=== PATIENT | female | born 1965 | race Hispanic/Latino ===

== ENCOUNTER 2019-11-10 23:11 | Inpatient (IN) | payer BC, SELFPAY ==
[2019-11-10] MEDS ORDERED: MAGNE/ALUM HYDROXD 30 ML UCUP ONE (23:35)
[2019-11-10] MEDS ORDERED: ONDANSETRON 4 MG/2 ML VIAL ONE (23:36)
[2019-11-10] MEDS ORDERED: MORPHINE 4 MG/ML SYR ONE (23:36)
[2019-11-10] MEDS ORDERED: LIDOCAINE VISCOUS 2% SOLN 15 ML UDC ONE (23:36)
[2019-11-10 23:37] LABS: Basophils % 0.7 % (0-1.3)
[2019-11-10 23:44] LABS: Absolute Lymphocytes (CBC) 1.8 K/uL (0.7-4.9); Hematocrit 42.7 % (36.0-45.0); Lymphocytes % 16.6 % (15.3-44.8); MPV 11.4 fL (7.6-11.3); RBC Red Blood Cell Count 4.96 M/uL (3.86-4.86)
[2019-11-10] MEDS ORDERED: MEPERIDINE HCL 25 MG/0.5 ML ONE (23:55)
[2019-11-10] MEDS ORDERED: MEPERIDINE HCL 50 MG/ML ONE (23:57)
--- NOTE | 2019-11-10 23:59 | RAD REPORT ---
EXAM DESCRIPTION: [place] Single View11/10/2019 11:43 pm CLINICAL HISTORY: Chest pain COMPARISON: none FINDINGS: The lungs appear clear of acute infiltrate. The heart is normal size IMPRESSION: No acute abnormalities displayed
[2019-11-11 00:02] LABS: ALT/SGPT 33 U/L (12-78); AST/SGOT 22 U/L (15-37); Albumin 3.8 g/dL (3.4-5.0); Alkaline Phosphatase 107 U/L (45-117); BUN Blood Urea Nitrogen 13 mg/dL (7-18); Bicarbonate 23 mmol/L (21-32); Bilirubin Direct 0.2 mg/dL (0-0.2); Bilirubin Total 0.6 mg/dL (0.2-1.0); Glucose Level 175 mg/dL (74-106); Lipase 66 U/L (73-393); Potassium 3.9 mmol/L (3.5-5.1); Protein, Total 8.6 g/dL (6.4-8.2); Sodium Level 140 mmol/L (136-145); Troponin (Emerg Dept Use Only) < 0.02 ng/mL (0.0-0.045)
[2019-11-11] MEDS ORDERED: MORPHINE 4 MG/ML SYR ONE (00:31)
[2019-11-11] MEDS ORDERED: HYDROMORPHONE HCL 0.5 MG/0.5 ML INJ ONE (00:50)
--- NOTE | 2019-11-11 01:02 | ER ---
Nurse's Notes [facility] Name: Alesia Hernandez Age: 53 yrs Sex: Female : 1965 Arrival Date: 11/10/2019 Time: 23:16 Bed 4 Private MD: Diagnosis: Acute cholecystitis Presentation: 11/09 23:19 Chief complaint: Patient states: Chest pain started 2-3 hours ago, reports cough with ca1 chest pain, denies SOB. Pain more on the R side, radiates to the back. Coronavirus screen: Patient denies fever greater than 100.4F, cough, shortness of breath, or difficulty breathing. Proceed with normal triage process. Ebola Screen: Patient negative for fever greater than or equal to 101.5 degrees Fahrenheit, and additional compatible Ebola Virus Disease symptoms Patient denies exposure to infectious person. Patient denies travel to an Ebola-affected area in the 21 days before illness onset. No symptoms or risks identified at this time. Initial Sepsis Screen: Does the patient meet any 2 criteria? No. Patient's initial sepsis screen is negative. Does the patient have a suspected source of infection? No. Patient's initial sepsis screen is negative. Risk Assessment: Do you want to hurt yourself or someone else? Patient reports no desire to harm self or others. Onset of symptoms was November 10, 2019. 23:19 Method Of Arrival: Wheelchair ca1 23:19 Acuity: LUCIO 3 ca1 Historical: - Allergies: 23:22 No Known Allergies; ca1 - Home Meds: 23:22 None [Active]; ca1 - PMHx: 23:22 Cholelithiasis; ca1 - PSHx: 23:22 None; ca1 - Immunization history:: Adult Immunizations not up to date, Flu vaccine is not up to date. - Social history:: Smoking status: Patient reports the use of cigarette tobacco products, 3-4 cigs a day. - Family history:: not pertinent. - Hospitalizations: : No recent hospitalization is reported. Screenin:44 Abuse screen: Denies threats or abuse. Nutritional screening: No deficits noted. ea Tuberculosis screening: No symptoms or risk factors identified. Fall Risk IV access (20 points). Assessment: 23:46 General: Appears in no apparent distress. Behavior is cooperative, appropriate for age, ea restless. Pain: Complains of pain in epigastric area Pain radiates to posterior aspect of right lateral abdomen and anterior aspect of right lateral abdomen. Pain: Pain began 3 hours ago. Neuro: Level of Consciousness is awake, alert, obeys commands, Oriented to person, place, time, situation. Cardiovascular: Patient's skin is warm and dry. Respiratory: Airway is patent Respiratory effort is even, unlabored, Respiratory pattern is regular, symmetrical. Derm: Skin is pink, warm \T\ dry. 11/10 00:15 Reassessment: Patient and/or family updated on plan of care and expected duration. Pain ah level reassessed. Pt states that she feels like she is resting better at this time and pain is better controlled. 00:48 Reassessment: Patient and/or family updated on plan of care and expected duration. Pain ah level reassessed. Patient is alert, oriented x 3, equal unlabored respirations, skin warm/dry/pink. Pt continues to have pain at this time. Pain addressed and dilaudid ordered and administered per orders. 01:32 Reassessment: attempted to call report to 2nd floor at this time. 01:39 Reassessment: Report called to RAINE Lyman on 2nd floor. 02:03 Reassessment: Patient and/or family updated on plan of care and expected duration. Pain ea level reassessed. Alert and oriented x 3. Pt reports pain has decreased. Respirations even and unlabored. Chest expansions even symmetrical. Pt admitted to second floor, left ED via stretcher per tech. Pt tolerating well. Vital Signs: 11/09 23:19 BP 147 / 67; Pulse 67; Resp 20; Temp 97.6(TE); Pulse Ox 100% on R/A; Weight 136.08 kg ca1 (R); Height 5 ft. 4 in. (162.56 cm) (R); Pain 10/10; 11/10 00:00 BP 129 / 60; Pulse 66; Resp 15; Pulse Ox 99% ; ah 00:31 BP 127 / 76; Pulse 67; Resp 15; Pulse Ox 99% ; ah 01:59 BP 138 / 75; Pulse 64; Resp 16; Temp 98.0; Pulse Ox 98% ; ah 11/09 23:19 Body Mass Index 51.49 (136.08 kg, 162.56 cm) ca1 ED Course: 11/09 23:16 Patient arrived in ED. cf2 23:20 Samir Frias MD is Attending Physician. rn 23:21 Triage completed. ca1 23:22 Arm band placed on right wrist. ca1 23:30 Inserted saline lock: 20 gauge in left antecubital area, using aseptic technique. Blood ea collected. Patient maintains SpO2 saturation greater than 95% on room air. 23:34 Carissa Issa, RN is Primary Nurse. ah 23:43 XRAY Chest (1 view) In Process Unspecified. EDMS 23:45 Patient has correct armband on for positive identification. Bed in low position. Call ea light in reach. monitor worker on. Pulse ox on. NIBP on. 11/10 00:[address] via wheelchair. ah 00:26 Patient moved back from CT. 00:42 CT Abd/Pelvis - IV Contrast Only In Process Unspecified. EDMS 01:01 David Holliday MD is Hospitalizing Provider. rn 01:58 No provider procedures requiring assistance completed. Patient admitted, IV remains in place. intact. Administered Medications: 11/09 23:35 Drug: Zofran (Ondansetron) 4 mg Route: IVP; Site: left antecubital; 11/10 00:29 Follow up: Response: No adverse reaction 11/09 23:37 Drug: morphine 4 mg {Note: RASS 1.} Route: IVP; Site: left antecubital; 11/10 00:29 Follow up: Response: No adverse reaction; RASS: Restless (+1) 11/09 23:42 Drug: GI Cocktail without - (Maalox Suspension 30 ml, Lidocaine Liquid 2 % 15 ea ml) Route: PO; 11/10 00:30 Follow up: Response: No adverse reaction 11/09 23:55 Drug: Demerol 25 mg Route: IVP; Site: left antecubital; 11/10 00:50 Follow up: Response: No adverse reaction; Pain is unchanged, physician notified; RASS: ea Restless (+1) 00:27 Drug: morphine 4 mg {Note: RASS 1.} Route: IVP; Site: left antecubital; 00:50 Follow up: Response: No adverse reaction; Pain is unchanged, physician notified; RASS: ea Restless (+1) 00:49 Drug: Dilaudid 0.5 mg {Note: RASS 1.} Route: IVP; Site: left antecubital; 01:42 Follow up: Response: No adverse reaction; Pain is decreased; RASS: Drowsy (-1) 01:05 Drug: Rocephin 1 grams Route: IV; Rate: calculated rate; Site: left antecubital; 01:42 Follow up: Response: No adverse reaction; IV Status: Completed infusion 01:10 Drug: Flagyl 500 mg Volume: 100 ml; Route: IVPB; Rate: 200 ml/hr; Infused Over: 30 ah mins; Site: left antecubital; 02:03 Follow up: Response: No adverse reaction; IV Status: Infusion continued upon transfer ea 01:47 Drug: Phenergan 12.5 mg Route: IVP; Site: left antecubital; 01:59 Follow up: Response: No adverse reaction; Nausea is decreased Outcome: 01:01 Decision to Hospitalize by Provider. rn 01:57 Admitted to Med/surg accompanied by tech, via stretcher, room 211, with chart, Report called to RAINE Lyman 01:57 Condition: stable 01:57 Instructed on the need for admit, Demonstrated understanding of 02:05 Patient left the ED. ea Signatures: Dispatcher [employer] EDMS Samir Frias MD MD rn Antunez, Elena RN Cherie Ham ea, RN RN ca1 Frazier, Celesta formerly [facility] Carissa Issa RN RN Corrections: (The following items were deleted from the chart) 00:28 00:27 morphine 4 mg IVP in left antecubital [facility] 00:49 00:49 Dilaudid 0.5 mg IVP in left antecubital [facility]
--- NOTE | 2019-11-11 01:02 | EDPHYS ---
Physician Documentation [facility] Name: Alesia Hernandez Age: 53 yrs Sex: Female : 1965 Arrival Date: 11/10/2019 Time: 23:16 Bed 4 Private MD: ED Physician Samir Frias HPI: 11/09 23:41 This 53 yrs old Female presents to ER via Wheelchair with complaints of chest rn pain, abd pain. 23:41 The patient or guardian reports chest pain that is located primarily in the epigastric rn area. Onset: 3 hour(s) ago. The pain radiates to The chest pain is described as sharp. Duration: The patient or guardian reports a single episode. Modifying factors: The symptoms are alleviated by nothing. the symptoms are aggravated by palpation of area. Severity of pain: At its worst the pain was moderate. The patient has experienced similar episodes in the past. Reports 3 hours of lower chest pain/abd pain/back pain, reports has had similar pain in past and was attributed to gallstones, but tonight worse, no fever/vomiting/diarrhea. No cough or sob. When asked to specify where it hurts, she points to sub-xiphoid region. Ate pizza for dinner. . Historical: - Allergies: 23:22 No Known Allergies; ca1 - Home Meds: 23:22 None [Active]; ca1 - PMHx: 23:22 Cholelithiasis; ca1 - PSHx: 23:22 None; ca1 - Immunization history:: Adult Immunizations not up to date, Flu vaccine is not up to date. - Social history:: Smoking status: Patient reports the use of cigarette tobacco products, 3-4 cigs a day. - Family history:: not pertinent. - Hospitalizations: : No recent hospitalization is reported. ROS: 23:41 Constitutional: Negative for fever, chills, and weight loss, Eyes: Negative for injury, rn pain, redness, and discharge, Neck: Negative for injury, pain, and swelling, Cardiovascular: Negative for palpitations, and edema, Respiratory: Negative for shortness of breath, cough, wheezing, and pleuritic chest pain, Abdomen/GI: Negative for vomiting, diarrhea, and constipation, Back: Negative for injury MS/Extremity: Negative for injury and deformity, Skin: Negative for injury, rash, and discoloration, Neuro: Negative for headache, weakness, numbness, tingling, and seizure. Exam: 23:41 Constitutional: This is a well developed, well nourished patient who is awake, alert, rn sitting upright and appears uncomfortable Head/Face: Normocephalic, atraumatic. ENT: MMM Cardiovascular: Regular rate and rhythm. No pulse deficits. Respiratory: Mild tachypnea. Clear bilateral breath sounds. No retractions or nasal flaring. Abdomen/GI: soft, + tenderness epigastric region, neg coe, no rebound MS/ Extremity: Pulses equal, no cyanosis. Neurovascular intact. Full, normal range of motion. Equal circumference. Neuro: Awake and alert, GCS 15, oriented to person, place, time, and situation. Cranial nerves II-XII grossly intact. Motor strength 5/5 in all extremities. Sensory grossly intact. Cerebellar exam normal. Vital Signs: 23:19 BP 147 / 67; Pulse 67; Resp 20; Temp 97.6(TE); Pulse Ox 100% on R/A; Weight 136.08 kg ca1 (R); Height 5 ft. 4 in. (162.56 cm) (R); Pain 10/10; 11/10 00:00 BP 129 / 60; Pulse 66; Resp 15; Pulse Ox 99% ; ah 00:31 BP 127 / 76; Pulse 67; Resp 15; Pulse Ox 99% ; ah 01:59 BP 138 / 75; Pulse 64; Resp 16; Temp 98.0; Pulse Ox 98% ; ah 11/09 23:19 Body Mass Index 51.49 (136.08 kg, 162.56 cm) ca1 MDM: 11/09 23:20 Patient medically screened. rn 11/10 01:00 Differential diagnosis: cholecystitis, Cholelithiasis esophagitis, gastritis, rn gastroesophageal reflux disease (GERD), pancreatitis, pleurisy. Data reviewed: vital signs, nurses notes, lab test result(s), EKG, radiologic studies, CT scan, plain films, and as a result, I will admit patient. Counseling: I had a detailed discussion with the patient and/or guardian regarding: the historical points, exam findings, and any diagnostic results supporting the discharge/admit diagnosis, lab results, radiology results, the need for further work-up and treatment in the hospital. Response to treatment: the patient's symptoms have mildly improved after treatment. Response to treatment: and as a result, I will admit patient. Admission orders: after a detailed discussion of the patient's condition and case, the admit orders are written by me. ED course: Consulted with Dr. Holliday, will admit to his service for acute cholecystitis, NPO, abx. . 11/09 23:26 Order name: Basic Metabolic Panel; Complete Time: 00:04 rn 11/09 23:26 Order name: CBC with Diff; Complete Time: 00:04 rn 11/09 23:26 Order name: Creatinine for Radiology; Complete Time: 00:04 rn 11/09 23:26 Order name: Hepatic Function; Complete Time: 00:04 rn 11/09 23:26 Order name: Lipase; Complete Time: 00:04 rn 11/09 23:26 Order name: Troponin (emerg Dept Use Only); Complete Time: 00:04 rn 11/09 23:26 Order name: XRAY Chest (1 view) rn 11/09 23:41 Order name: CT Abd/Pelvis - IV Contrast Only rn 11/09 23:26 Order name: IV Saline Lock; Complete Time: 23:33 rn 11/09 23:26 Order name: Labs collected and sent; Complete Time: 23:33 rn 11/09 23:26 Order name: EKG; Complete Time: 23:28 rn 11/09 23:26 Order name: EKG - Nurse/Tech; Complete Time: 23:33 rn 11/10 01:00 Order name: NPO; Complete Time: 01:18 rn Administered Medications: 11/09 23:35 Drug: Zofran (Ondansetron) 4 mg Route: IVP; Site: left antecubital; ea 11/10 00:29 Follow up: Response: No adverse reaction 11/09 23:37 Drug: morphine 4 mg {Note: RASS 1.} Route: IVP; Site: left antecubital; ea 11/10 00:29 Follow up: Response: No adverse reaction; RASS: Restless (+1) ea 11/09 23:42 Drug: GI Cocktail without - (Maalox Suspension 30 ml, Lidocaine Liquid 2 % 15 ea ml) Route: PO; 11/10 00:30 Follow up: Response: No adverse reaction 11/09 23:55 Drug: Demerol 25 mg Route: IVP; Site: left antecubital; 11/10 00:50 Follow up: Response: No adverse reaction; Pain is unchanged, physician notified; RASS: ea Restless (+1) 00:27 Drug: morphine 4 mg {Note: RASS 1.} Route: IVP; Site: left antecubital; 00:50 Follow up: Response: No adverse reaction; Pain is unchanged, physician notified; RASS: ea Restless (+1) 00:49 Drug: Dilaudid 0.5 mg {Note: RASS 1.} Route: IVP; Site: left antecubital; 01:42 Follow up: Response: No adverse reaction; Pain is decreased; RASS: Drowsy (-1) 01:05 Drug: Rocephin 1 grams Route: IV; Rate: calculated rate; Site: left antecubital; 01:42 Follow up: Response: No adverse reaction; IV Status: Completed infusion 01:10 Drug: Flagyl 500 mg Volume: 100 ml; Route: IVPB; Rate: 200 ml/hr; Infused Over: 30 ah mins; Site: left antecubital; 02:03 Follow up: Response: No adverse reaction; IV Status: Infusion continued upon transfer ea 01:47 Drug: Phenergan 12.5 mg Route: IVP; Site: left antecubital; 01:59 Follow up: Response: No adverse reaction; Nausea is decreased Disposition: 11/11/19 01:01 Hospitalization ordered by David Holliday for Inpatient Admission. Preliminary diagnosis is Acute cholecystitis. - Bed requested for Telemetry/MedSurg (Inpatient). - Status is Inpatient Admission. ea - Condition is Stable. - Problem is new. - Symptoms have improved. Signatures: Dispatcher [employer] EDMS Amy Chávez RN RN mw Nieto, Roman, MD MD rn Antunez, Elena, RN RN ea Acob, Cheryl, RN RN ca1 Harris, Amy, RN RN Corrections: (The following items were deleted from the chart) 01:01 Hospitalization Ordered by David Holliday MD for Inpatient Admission. Preliminary diagnosis is Acute cholecystitis. Bed requested for Telemetry/MedSurg (Inpatient). Status is Inpatient Admission. Condition is Stable. Problem is new. Symptoms have improved. rn 02:05 01:20 11/11/2019 01:01 Hospitalization Ordered by David Holliday MD for Inpatient ea Admission. Preliminary diagnosis is Acute cholecystitis. Bed requested for Telemetry/MedSurg (Inpatient). Status is Inpatient Admission. Condition is Stable. Problem is new. Symptoms have improved. mw
[2019-11-11] MEDS ORDERED: CEFTRIAXONE/SWI 1gm 1 GM/10 ML SYR ONE (01:08)
[2019-11-11] MEDS ORDERED: METRONIDAZOLE 500mg IVPB 500 MG/100 ML BAG IV ONE (01:09)
[2019-11-11] MEDS ORDERED: PROMETHAZINE INJ 25 MG/ML AMP ONE (01:47)
[2019-11-11 02:24] VITALS: BMI 50.1
[2019-11-11] MEDS ORDERED: ONDANSETRON 4 MG/2 ML VIAL IV PRN (02:24)
[2019-11-11] MEDS: D5 0.45 NS 1,000 ML IV SCH ×3 (02:30→19:03)
[2019-11-11] MEDS: HYDROMORPHONE HCL 1 MG/ML INJ IV PRN ×2 (06:34→10:47)
[2019-11-11] MEDS ORDERED: METRONIDAZOLE 500mg IVPB 500 MG/100 ML BAG IV SCH (09:00)
[2019-11-11] MEDS ORDERED: CEFTRIAXONE/SWI 1gm 1 GM/10 ML SYR IV SCH (09:00)
--- NOTE | 2019-11-11 09:16 | EKG ---
Test Date: 2019-11-10 Test Time: 23:21:09 Electric Crane Operator: SHAR MEASUREMENT RESULTS: Intervals: Rate: 66 KS: 154 QRSD: 80 QT: 402 QTc: 421 [place]: P: 43 KS: 154 QRS: 28 T: 12 INTERPRETIVE STATEMENTS: Normal sinus rhythm Normal ECG No previous ECG available for comparison Electronically Signed On 11-11-19 09:15:38 CDT by Elias Martin
[2019-11-11 09:46] LABS: Absolute Lymphocytes (CBC) 1.3 K/uL (0.7-4.9); Basophils % 0.2 % (0-1.3); Hematocrit 40.7 % (36.0-45.0); Lymphocytes % 11.2 % (15.3-44.8); MPV 11.3 fL (7.6-11.3); RBC Red Blood Cell Count 4.71 M/uL (3.86-4.86)
[2019-11-11 09:48] LABS: ALT/SGPT 27 U/L (12-78); AST/SGOT 14 U/L (15-37); Albumin 3.4 g/dL (3.4-5.0); Alkaline Phosphatase 93 U/L (45-117); BUN Blood Urea Nitrogen 10 mg/dL (7-18); Bicarbonate 25 mmol/L (21-32); Bilirubin Total 0.5 mg/dL (0.2-1.0); Glucose Level 188 mg/dL (74-106); Sodium Level 138 mmol/L (136-145)
[2019-11-11] MEDS: INSULIN -REGULAR HUMAN 50 UNIT/0.5 ML ML SQ SCH ×3 (11:30→21:00)
[2019-11-11] MEDS ORDERED: PIPER/TAZO/NS 3.375gm 3.375 GM/100 ML BAG IVPB SCH (12:00)
--- NOTE | 2019-11-11 14:17 | HP ---
Date of Admission: 11/11/2019 Brief History Of Present Illness: Patient is a 53-year-old female who [facility] the [facility] with abdominal pain beginning 3 hours prior to admission to the hospital. She has been eating fr ied fish and fatty greasy foods which is normal for her diet including pizza and other greasy type fo ods. She noted that after this occurred, she had some epigastric and right upper quadrant abdominal pain similar to episodes before in the past, but this episode felt worse at this point. It was moder ate pain and she has experienced similar episodes, but she thought this was slightly worse and it was radiating through to the back and into the chest area. She was told she has had gallstones in the p ast, but she did not seek out any medical help at that time. She denies fever, vomiting, diarrhea, c hills, cough, shortness of breath. Patient has not had a colonoscopy. Patient does not have a prima care doctor and has had not seen a doctor in many years and has no information if she has any pree xisting medical conditions other than super morbid obesity. Past Medical History: Only significant she only knows of cholelithiasis. Home Medications: None. Allergies: NO KNOWN DRUG ALLERGIES. Past Surgical History: She denies. Social History: She smokes half a pack per day approximately for about 5 years. Review of Systems: 10-point review of systems other than HPI, denies. She states she feels somewhat better at this poin t and was sleeping comfortably most of the evening by report and was sleeping upon my entry into the room today comfortably. Physical Examination: Vital Signs: At time of my examination, her BMI is 50. She is 5 feet 3 inches, 282 pounds. Blood p ressure was 155/72, temperature 97.2, heart rate 62, respiratory rate 17, SpO2 of 97% on room air. General: She is awake, alert, and oriented. Psychiatric: She is appropriately conversive. HEENT: She is normocephalic. Her sclerae were anicteric. Her mucous membranes are moist. Orophary nx is clear. Neck: Supple. No JVD. Chest: Normal expansion and excursion. Cardiovascular: Regular rate and rhythm. Pulmonary: Clear to auscultation bilaterally. Abdomen: Super morbidly obese. She has mild tenderness in the epigastrium and right upper quadrant. Negative Jacome sign. No peritoneal signs at this point. Extremities: No clubbing, cyanosis, or edema. Skin: Warm and dry. Laboratory Data: Reveals a white blood cell count of 11.2, hemoglobin is 13.7, hematocrit of 40.7, p latelet count is 157. Her neutrophils were 81%. Her chemistry showed a sodium of 138, potassium 4.0 , chloride 107, carbon dioxide 25, BUN 10, creatinine 0.68, glucose is 188, total bilirubin 0.5, on a dmission was 0.6, direct bilirubin is 0.2 on admission, AST is 14, ALT is 27 on admission. Her AST w as 22. Her ALT was 33. Her alkaline phosphatase is 93, on admission 107. Her rapid troponin was le ss than 0.02. Her lipase was 66 on admission. Now, her amylase is 36. She had imaging performed wh ich included a CT scan of the abdomen and pelvis. It was read by the [employer] system and report was conveyed to me as distended gallbladder with likely stones and sludge, possible indication of perich olecystic fluid, but none obviously seen was reported on the report, possibly suggestive of acute cho lecystitis. Assessment And Plan: This is a 53-year-old morbidly obese female who presents with right upper quadr ant abdominal pain and signs and symptoms consistent with biliary colic or possible cholecystitis. 1.IV fluid hydration. 2.Antibiotic coverage. 3.Serial abdominal exams. 4.As the patient has a significant improvement in her symptoms at this point due to the COVID issue as well as the patient's significant improvement in symptoms, I will give her antibiotics to continue and complete serial abdominal exams continued to keep the patient n.p.o. and possible preparation fo r laparoscopic cholecystectomy should her symptoms not improve significantly. If she improves, we wi ll plan for outpatient procedure when the pandemic has improved, as the recommendations from the stat e are to minimize the surgical intervention unless they are on a significant urgent basis and the pat ient with improvement of her symptoms and no significant abnormality in her labs could possibly be di scharged without surgical intervention and as such follow up for her surgery as an outpatient. I hav e explained the risks, benefits, alternatives of the above stated plan. Patient agrees to proceed as indicated. JIMENA/BLANCA Voice ID: [id number]
[2019-11-11] MEDS ORDERED: MORPHINE 2 MG/ML SYR IV PRN (15:27)
[2019-11-11] MEDS: ACETAMINOPHEN 500 MG TAB PO PRN ×2 (15:37→21:44)
[2019-11-11] MEDS: PIPER/TAZO/NS 3.375gm 3.375 GM/100 ML BAG IVPB SCH (16:03)
[2019-11-12] MEDS: PIPER/TAZO/NS 3.375gm 3.375 GM/100 ML BAG IVPB SCH ×3 (00:46→17:12)
[2019-11-12] MEDS: MORPHINE 2 MG/ML SYR IV PRN (01:17)
[2019-11-12] MEDS: D5 0.45 NS 1,000 ML IV SCH ×4 (02:24→18:24)
[2019-11-12 05:40] LABS: Absolute Lymphocytes (CBC) 1.3 K/uL (0.7-4.9); Basophils % 0.2 % (0-1.3); Hematocrit 38.8 % (36.0-45.0); Lymphocytes % 9.7 % (15.3-44.8); MPV 10.8 fL (7.6-11.3); RBC Red Blood Cell Count 4.47 M/uL (3.86-4.86)
[2019-11-12 05:50] LABS: ALT/SGPT 23 U/L (12-78); AST/SGOT 14 U/L (15-37); Alkaline Phosphatase 81 U/L (45-117); BUN Blood Urea Nitrogen 7 mg/dL (7-18); Bicarbonate 25 mmol/L (21-32); Bilirubin Total 1.1 mg/dL (0.2-1.0); Glucose Level 154 mg/dL (74-106); Phosphorus 2.2 mg/dL (2.5-4.9); Potassium 3.8 mmol/L (3.5-5.1); Protein, Total 7.1 g/dL (6.4-8.2); Sodium Level 138 mmol/L (136-145)
[2019-11-12] MEDS: INSULIN -REGULAR HUMAN 50 UNIT/0.5 ML ML SQ SCH ×4 (07:30→20:11)
[2019-11-12] MEDS ORDERED: POTASSIUM PHOS IN 0.9 % NACL 15 MMOL/250 ML BAG IV ONE (09:00)
--- NOTE | 2019-11-12 10:59 | RAD REPORT ---
EXAM DESCRIPTION: CT - Abdomen Pelvis W Contrast - 11/11/2019 10:10 am CLINICAL HISTORY: The patient is 53 years old and is Female; upper abd pain TECHNIQUE: Axial computed tomography images of the abdomen and pelvis with intravenous contrast. S agittal and coronal reformatted images were created and reviewed. This CT exam was performed using one or more of the following dose reduction techniques: automated exposure control, adjustment of t he mA and/or kV according to patient size, and/or use of iterative reconstruction technique. COMPARISON: No relevant prior studies available. FINDINGS: LUNG BASES: Unremarkable. No mass. No consolidation. ABDOMEN: LIVER: There is a diffuse decrease in hepatic parenchymal density, consistent with fatty infiltr ation. GALLBLADDER AND BILE DUCTS: The gallbladder is distended. Multiple gallstones are present within the gallbladder. Suggestion of minimal pericholecystic inflammation is noted. PANCREAS: No ductal dilation. No mass. SPLEEN: Few splenic granuloma are present. ADRENALS: Unremarkable. No mass. KIDNEYS AND URETERS: Unremarkable. The kidneys enhance symmetrically. No obstructing renal or ur eteral calculus is seen. No hydronephrosis or hydroureter. No perinephric fluid or stranding. STOMACH AND BOWEL: The stomach is minimally filled with fluid and air. The small bowel is normal in caliber. Stool is present throughout the colon. Scattered colonic diverticula are noted without s urrounding inflammation. There is no bowel obstruction. PELVIS: APPENDIX: The appendix is normal in caliber without surrounding inflammation. BLADDER: Unremarkable. No mass. REPRODUCTIVE: A 5.3 cm right ovarian cyst is present. The uterus and left ovary are normal. ABDOMEN and PELVIS: INTRAPERITONEAL SPACE: Unremarkable. No free air. No significant fluid collection. BONES/JOINTS: Multilevel degenerative change of the spine is present. SOFT TISSUES: The soft tissues are normal. VASCULATURE: Unremarkable. No abdominal aortic aneurysm. LYMPH NODES: Unremarkable. No enlarged lymph nodes. IMPRESSION: 1. Cholelithiasis with distended gallbladder suggestive of minimal pericholecystic inf lammation. Findings may be secondary to acute cholecystitis. Further evaluation with right upper quad rant ultrasound and/or HIDA scan could be performed. 2. Right ovarian cyst. Recommend prompt follow-up with pelvic US. Reference: J Am Caitlyn Radiol 2013;[id number] Electronically signed by: Trinity Castillo MD 11/11/2019 12:51 AM CDT Due to temporary technical issues with the PACS/Fluency reporting system, reports are being signed by the in house radiologist as a courtesy to ensure prompt reporting. The interpreting radiologist is f ully responsible for the content of the report.
[2019-11-12] MEDS ORDERED: BUPIVACA 0.25%/EPI 0.0005%/PF 30 ML VIAL ONE (11:03)
[2019-11-12] MEDS ORDERED: ROCURONIUM 50 MG/5 ML VIAL IV ONE ×2 (11:09→13:36)
[2019-11-12] MEDS ORDERED: dexAMETHasone 10 MG/ML VIAL ONE (11:09)
[2019-11-12] MEDS ORDERED: propofoL 200 MG/20 ML VIAL IV ONE (11:09)
[2019-11-12] MEDS ORDERED: LIDOCAINE 2% MPF 5 ML VIAL ONE (11:09)
[2019-11-12] MEDS ORDERED: ONDANSETRON 4 MG/2 ML VIAL ONE (11:10)
[2019-11-12] MEDS ORDERED: MIDAZOLAM HCL 2 MG/2 ML INJ ONE (11:10)
[2019-11-12] MEDS ORDERED: FENTANYL CITR 250 MCG/5 ML ONE (11:10)
[2019-11-12] MEDS ORDERED: Ringers Lactate 1,000 ML IV ONE ×2 (11:14→12:33)
[2019-11-12] MEDS ORDERED: GLYCOPYRROLATE 0.2 MG/ML SYR ONE ×3 (11:57→14:28)
[2019-11-12] MEDS ORDERED: EPHEDRINE SULF 50 MG/ML VIAL ONE (12:02)
[2019-11-12] MEDS ORDERED: NEOSTIGMINE 1 MG/ML -5 ML ONE (14:28)
[2019-11-12] MEDS ORDERED: KETOROLAC 30 MG/ML INJ ONE (14:29)
--- NOTE | 2019-11-12 14:42 | P.OP ---
Preoperative diagnosis: Acute Cholecystitis with Cholelithiasis Postoperative diagnosis: Acute Cholecystitis with Cholelithiasis Primary procedure: Laparoscopic Cholecystectomy Anesthesia: GETA + Local Estimated blood loss: <20cc Specimen: Gallbladder, Gallstones Findings: Gross inflammation, short cystic duct, super morbid obesity, impaced stone Complications: None Drain(s): KATRIN drain Transferred to: Recovery Room Condition: Good
[2019-11-12] MEDS ORDERED: MORPHINE 10 MG/ML VIAL ONE (14:45)
--- NOTE | 2019-11-12 16:27 | OP ---
Date of Procedure: 11/12/2019 Surgeon: David Holliday MD, Preoperative Diagnosis: Acute cholecystitis with cholelithiasis. Postoperative Diagnosis: Acute cholecystitis with cholelithiasis. Procedure Performed: Laparoscopic cholecystectomy. Anesthesia: General endotracheal plus local with 0.5% Marcaine with epinephrine. Estimated Blood Loss: Less than 20 cc. Specimen: Gallstones and gallbladder. Findings: 1.Gross inflammatory changes to the gallbladder. 2.Distended tense gallbladder. 3.Impacted stone in the neck of the gallbladder. 4.Short cystic duct. 5.Gross intraabdominal adiposity with encasement of the gallbladder. 6.Super morbid obesity. Complications: None. Drains: A 10 mm KATRIN flat drain placed in the subhepatic space. Disposition: Transferred to recovery room in good condition. Brief History Of Present Illness: The patient is a 53-year-old female who presents to the hospital w ith signs of possible early cholecystitis. She improved for a day and a half and was asking to not h ave surgery through the current COVID situation. She had worsening of her symptoms, however, with in crease of her leukocytosis and as such, her clinical exam was nonreassuring and I recommended a lapar oscopic cholecystectomy as she did not respond to nonoperative management with IV antibiotics, n.p.o. status, IV fluid hydration, and so forth. Therefore, she was deemed appropriate for operative inter vention. After I explained the risks, benefits, and alternatives including but not limited to, injur y to bile ducts, intestines, need for more surgery, the patient agreed to proceed. Procedure In Detail: After informed consent was obtained, the patient was brought to the operating r oom, prepped and draped in the usual sterile fashion after adequate anesthesia achieved. A supraumbi lical area was anesthetized with 0.25% Marcaine and sharply incised. A 5 mm trocar was introduced in the abdomen without evidence of complication. Insufflation was obtained to 15 mmHg at this time. T he abdomen was found to have very minimal working space due to a significant intraabdominal adiposity and a very large thick omentum, which took up the majority of the patient's abdomen even at 15 mmHg. The patient was positioned head up and this made minimal improvement. I then placed additional tro car in the epigastrium and 2 in the right upper quadrant. These were similarly anesthetized and sharron ply incised. 5 mm trocars were introduced in the abdomen under direct visualization without evidence of complication. The umbilical trocar was then upsized to a 12 mm under direct visualization withou t complication. Additional trocar was required during the dissection, but I will describe this later . I removed the omentum from the anterior surface of the gallbladder and peeling this down. The gal lbladder was found to be grossly inflamed, difficult to manage and unable to be grasped at this time. A decompression needle was then brought into the field and used to decompress the fundus of the gal lbladder with thick, viscous, infected appearing bile with sludgy material. This was very minimally suctioned out despite multiple attempts to suction this out using high suction on the needle decompre ssion device. I then removed the needle decompression device to grasp the patient's gallbladder with the most lateral trocar and placed toward the patient's right shoulder, although looked quite large and tense and I was unable to get the gallbladder over the top of the abdomen as the patient had sign ificant intraabdominal adiposity complicating the entire dissection. I continued to bluntly dissect the omentum off the anterior surface of the gallbladder and down to the Wallace pouch. After dissec ting the inflammatory rind on the anterior surface of the gallbladder, I found the gallbladder wall l aterally and down near the Wallace's area. I grasped this and pulled it laterally and continued dis secting down to expose the cystic duct and cystic artery. These were both visualized and the cystic duct was found to be quite short and with significant inflammatory changes. I then encircled this us ing a Becki retractor and after this was performed, I placed triple titanium clips on the proximal side and singly on the gallbladder essentially and ligated this structure, which was identified as th e cystic duct. I then dissected the cystic artery and encircled this as the only pulsatile mass eman ating in the proper anatomic position. I then clipped this and used the LigaSure to ligate this afte r doubly clipping this on the proximal side and singly on the distal side of the cystic artery. I th en proceeded to remove the gallbladder from the hepatic fossa. The gallbladder was found to be somew hat intrahepatic as well requiring a very meticulous dissection with additional fulguration but with minimal spillage of blood. After the gallbladder was removed, it continued to spill bile and stones from the previously placed clip at the cystic duct gallbladder junction and this was placed in EndoCa tch bag, removed from the umbilical trocar. All the stones were grasped and removed after being plac ed in EndoCatch bag and sent out as well. I then copiously irrigated the abdomen and suctioned out a ll bilious material and suctioned and irrigated out the hepatic fossa. There were no additional hemo static maneuvers required. I placed a 10 mm KATRIN drain, which was flat type in the subhepatic space an d brought it out through the right most lateral trocar. Not mentioned earlier, I had to place a tria ngular liver retractor into the abdomen to push the adipose tissue down to allow for visualization of the gallbladder throughout the procedure. After the gallbladder was removed, then the area was copi ously irrigated multiple times and the drain was secured to the skin with a 2-0 nylon suture. I then irrigated the abdomen after placing the patient in neutral position and suctioned it out. The efflu ent was completely clear at this point and the drain was found to be in good anatomic position. I th en proceeded to close the umbilical trocar site after placing the patient in steep Trendelenburg posi tion as the adipose tissue left approximately 1 mm of space between the abdominal wall and the entry site. After placing in steep Trendelenburg, I was able to get a little better visualization. I was able to close the abdominal trocar at the supraumbilical position using a Bradford-Sofiya suture pass er with a 0 Vicryl in interrupted fashion with good approximation of tissues. I then removed all rem aining trocars under direct visualization without evidence of complication. After appropriately deco mpressed the abdomen, I then copiously irrigated all incisions and closed with interrupted caty an d sterile dressing was placed over top. The patient tolerated the procedure without incident or complication, transferred to PACU in good condition. All counts were c orrect at the end of the case. TK/MODL Voice ID: [id number] Report ID: [id number]
[2019-11-12] MEDS: HYDROCODONE/APAP 7.5/325 MG TAB PO PRN (17:28)
[2019-11-13] MEDS: PIPER/TAZO/NS 3.375gm 3.375 GM/100 ML BAG IVPB SCH ×3 (00:18→17:11)
[2019-11-13] MEDS: D5 0.45 NS 1,000 ML IV SCH ×4 (00:19→23:02)
[2019-11-13 04:34] LABS: Basophils % 0.2 % (0-1.3); Hematocrit 35.1 % (36.0-45.0); MPV 11.2 fL (7.6-11.3)
[2019-11-13 04:53] LABS: ALT/SGPT 56 U/L (12-78); AST/SGOT 85 U/L (15-37); Albumin 2.7 g/dL (3.4-5.0); Alkaline Phosphatase 82 U/L (45-117); BUN Blood Urea Nitrogen 11 mg/dL (7-18); Bicarbonate 25 mmol/L (21-32); Bilirubin Total 0.6 mg/dL (0.2-1.0); Glucose Level 146 mg/dL (74-106); Phosphorus 1.9 mg/dL (2.5-4.9); Potassium 3.9 mmol/L (3.5-5.1); Sodium Level 138 mmol/L (136-145)
[2019-11-13 05:08] LABS: Blood Morphology Comment NOT SEEN (NOT SEEN); Platelet Estimate ADEQ
[2019-11-13] MEDS: INSULIN -REGULAR HUMAN 50 UNIT/0.5 ML ML SQ SCH ×4 (07:30→21:00)
[2019-11-13] MEDS: MORPHINE 2 MG/ML SYR IV PRN (08:41)
[2019-11-13] MEDS ORDERED: POTASSIUM PHOS IN 0.9 % NACL 15 MMOL/250 ML BAG IV ONE (09:00)
--- NOTE | 2019-11-13 11:14 | P.PN ---
Subjective Date of Service: 11/13/19 Subjective: Improving (mild appropriate pain level, not ambulatory) Physical Examination - Vital Signs Temperature: 98 F Blood Pressure: 106/58 Pulse: 81 Respirations: 20 Pulse Ox (%): 93 - Physical Exam General: Alert, In no apparent distress, Cooperative HEENT: Mucous membr. moist/pink Respiratory: Diminished Cardiovascular: No edema Gastrointestinal: Other (soft, mild appropriate TTP, ND, dressings clean and dry , KATRIN serosanguanous) Integumentary: No rashes Neurological: Normal speech Assessment And Plan - Current Problems (Diagnosis) (1) Acute cholecystitis due to biliary calculus Current Visit: Yes Status: Acute - Plan s/p laparoscopic cholecystectomy POD 1 - pain well controlled with current regime - resp: incentive spirometry - GI - continue KATRIN drainage - FEN: will advance diet - ID continue antibiotics - prophylaxes: start lovenox - ambulate with assist
[2019-11-13] MEDS: HYDROCODONE/APAP 7.5/325 MG TAB PO PRN ×2 (17:09→23:01)
[2019-11-14] MEDS: PIPER/TAZO/NS 3.375gm 3.375 GM/100 ML BAG IVPB SCH ×2 (00:53→09:00)
[2019-11-14 04:43] LABS: Absolute Lymphocytes (CBC) 1.9 K/uL (0.7-4.9); Basophils % 0.5 % (0-1.3); Hematocrit 32.8 % (36.0-45.0); Lymphocytes % 25.7 % (15.3-44.8); MPV 11.1 fL (7.6-11.3); RBC Red Blood Cell Count 3.75 M/uL (3.86-4.86)
[2019-11-14 05:01] LABS: ALT/SGPT 74 U/L (12-78); AST/SGOT 82 U/L (15-37); Albumin 2.4 g/dL (3.4-5.0); Alkaline Phosphatase 80 U/L (45-117); BUN Blood Urea Nitrogen 12 mg/dL (7-18); Bicarbonate 25 mmol/L (21-32); Bilirubin Total 0.5 mg/dL (0.2-1.0); Glucose Level 117 mg/dL (74-106); Potassium 3.6 mmol/L (3.5-5.1); Protein, Total 6.6 g/dL (6.4-8.2); Sodium Level 139 mmol/L (136-145)
[2019-11-14 05:31] LABS: Phosphorus 3.2 mg/dL (2.5-4.9)
[2019-11-14] MEDS: INSULIN -REGULAR HUMAN 50 UNIT/0.5 ML ML SQ SCH (07:30)
[2019-11-14] MEDS ORDERED: POTASSIUM CL SA 10 MEQ TAB PO ONE (09:00)
[2019-11-14] MEDS ORDERED: ENOXAPARIN 40 MG/0.4 ML SQ SCH (09:00)
[2019-11-14 09:24] VITALS: O2SAT 96
[2019-11-14 09:31] VITALS: BP 124/75; TEMP 97.9
[2019-11-14] MEDS: D5 0.45 NS 1,000 ML IV SCH (10:24)
--- NOTE | 2019-11-27 10:55 | P.DS ---
Admission Date: 11/11/19 Discharge Date: 11/27/19 Disposition: ROUTINE DISCHARGE Discharge Condition: CRITICAL Reason for Admission: Cholecystitis Procedures: Laparoscopic Cholecystectomy - Problems (1) Acute cholecystitis due to biliary calculus Status: Acute Brief History of Present Illness: Patient is a 53 year old woman who presents with RUQ abdominal pain. Hospital Course: Patient admitted with RUQ abdominal pain concerning for cholecystitis. She wanted to leave hospital if possible due to COVID19. She failed PO challenge and as such was taken to OR for laparoscopic cholecystectomy. She did well post op and was sent home with KATRIN drain. Vital Signs/Physical Exam: Temp Pulse Resp BP Pulse Ox 97.9 F 68 18 124/75 97 11/14/19 08:00 11/14/19 08:00 11/14/19 08:00 11/14/19 08:00 11/14/19 08:00 General: Alert, In no apparent distress, Cooperative Neck: Supple Respiratory: Clear to auscultation bilaterally Cardiovascular: Regular rate/rhythm Gastrointestinal: Other (soft, mild appropriate TTP, ND, KATRIN in place in RUQ. Incisions clean and dry, caty in place) Neurological: Normal gait, Normal speech Laboratory Data at Discharge: WBC 7.5 K/uL (4.3-10.9) D 11/14/19 04:30 Hgb 11.0 g/dL (12.0-15.0) L 11/14/19 04:30 Hct 32.8 % (36.0-45.0) L 11/14/19 04:30 Plt Count 147 K/uL (152-406) L 11/14/19 04:30 APTT 28.9 SECONDS (24.3-36.9) 11/12/19 05:00 Sodium 139 mmol/L (136-145) 11/14/19 04:30 Potassium 3.6 mmol/L (3.5-5.1) 11/14/19 04:30 BUN 12 mg/dL (7-18) 11/14/19 04:30 Creatinine 0.57 mg/dL (0.55-1.3) 11/14/19 04:30 Glucose 117 mg/dL (74-106) H 11/14/19 04:30 Phosphorus 3.2 mg/dL (2.5-4.9) D 11/14/19 04:30 Magnesium 2.0 mg/dL (1.8-2.4) 11/12/19 05:00 Total Bilirubin 0.5 mg/dL (0.2-1.0) 11/14/19 04:30 AST 82 U/L (15-37) H 11/14/19 04:30 ALT 74 U/L (12-78) 11/14/19 04:30 Alkaline Phosphatase 80 U/L (45-117) 11/14/19 04:30 Amylase 36 U/L (25-115) 11/11/19 08:57 Lipase 66 U/L (73-393) L 11/10/19 23:24 Home Medications: Hydrocodone 5/APAP 325 [[place] 5/325] 1 tab PO Q8H PRN #10 tab 11/14/19 New Medications: Hydrocodone 5/APAP 325 [[place] 5/325] 1 tab PO Q8H PRN #10 tab PRN Reason: Pain Scale 5-7 (Moderate) Patient Discharge Instructions: - [email or web address] Diet: [place] Activity: No lifting more than 10 lbs Followup: David Holliday MD [ACTIVE - CAN ADMIT] - 1 Week (call to make an appointment. )
== END 2019-11-14 12:02 | disposition home or self-care (01) | DRG 418 ==
LOC: ER 23:11 → ERHOLD 11-11 01:17 → 2ND 11-11 01:47
PROVIDERS: ADMIT Surgery; ATTEND Surgery
PROC: 0W9G40Z Drainage of Peritoneal Cavity with Drainage Device, Percutaneous Endoscopic Approach (ICD-10-PCS; 2019-11-12)
PROC: 0FT44ZZ Resection of Gallbladder, Percutaneous Endoscopic Approach (ICD-10-PCS; principal; 2019-11-12 11:00)
DX: K80.00 Calculus of gallbladder with acute cholecystitis without obstruction (principal); Z68.43 Body mass index [BMI] 50.0-59.9, adult; E66.01 Morbid (severe) obesity due to excess calories; F17.200 Nicotine dependence, unspecified, uncomplicated
CPT/HCPCS: 36415; 71045; 74177; 80048; 80053; 80076; 82150; 82947; 83690; 83735; 84100; 84484; 85025; 85730; 88304; 93005; 94760; 96365; 96375; 99285; J0696; J1100; J1170; J2175; J2250; J2270; J2405; J2543; J2550; J2704; J2710; J3010; J7120; J7799; Q9967